=== PATIENT | female | born 1955 | race Caucasian/White ===

== ENCOUNTER 2023-02-04 10:10 | Outpatient (OUT) | payer MEDICARE, SELFPAY ==
--- NOTE | 2023-02-04 10:14 | CT_ITS ---
[address] [address] Patient Name: ATUL LEACH MRN: [id number] date: 1955 Sex: F Assigned Patient Location: CT Current Patient Location: CT Accession/Order Number: [id number] Exam Date: 02/04/2023 10:25 Report Date: 02/04/2023 12:06 At the request of: RAGHU OROPEZA Procedure: CT chest wo con EXAMINATION: CT chest wo con HISTORY: Abnormal CT scan, lung R91.8 COMPARISON: CT chest 02/19/2022 TECHNIQUE: Multi-planar CT images were obtained without and/or with IV contrast as indicated by examination type. Axial, Coronal, and Sagittal images. Dose reduction techniques were achieved by using automated exposure control and/or adjustment of mA and/or kV according to patient size and/or use of iterative reconstruction technique. FINDINGS: LUNGS: Stable 7 x 6 x 2 mm opacity within the medial aspect of the right lower lobe adjacent the junction of the major and minor fissure. No additional opacities/nodules or infiltrates. No significant chronic interstitial changes. PLEURA: No mass, effusion, or pneumothorax. VASCULATURE: No abnormality. JAQUELINE: No mass or adenopathy. MEDIASTINUM: No mass or adenopathy. CARDIAC: No enlargement, pericardial thickening, or significant calcification. AORTA: No aneurysm or dissection. CHEST WALL: No mass or axillary adenopathy. BONES: No bone lesion or fracture. LIMITED ABDOMEN: Prior gastric surgery. Limited images of the upper abdomen. OTHER: Negative. CT/CT chest wo con IMPRESSION: 1. Stable nodule versus discoid scarring within right lower lobe over past year. No overtly suspicious findings. If patient is at increased risk for lung cancer consider follow-up imaging in one year to document stability. Electronically authenticated by: RAHUL HERNÁNDEZ Date: 02/04/2023 12:06
== END 2023-02-04 10:11 | disposition home or self-care (01) ==
LOC: CT 10:10
PROVIDERS: PCP Family Medicine; Visit Provider Internal Medicine
DX: R91.8 Other nonspecific abnormal finding of lung field (principal)
CPT/HCPCS: 71250